=== PATIENT | female | born 1970 | race Caucasian/White ===

== ENCOUNTER 2017-06-24 17:55 | Emergency (ER) | payer OTHER, MEDICAID ==
[~2017-06-24] VITALS: Ht 157.5 cm; Wt 149.7 kg
[2017-06-24 17:55] VITALS: BP_SYST 98
[~2017-06-24 17:55] MED LIST: synthroid
[2017-06-24] MEDS: IPRATROPIUM/ALBUTEROL SULFATE 3 ML AMPUL.NEB INH ONE (18:31)
[2017-06-24] MEDS: KETOROLAC TROMETHAMINE 60 MG/2 ML VIAL IM ONE (18:33)
[2017-06-24] MEDS: PREDNISONE 20 MG TABLET PO ONE (18:34)
[2017-06-24 18:55] LABS: BASOPHILS # (AUTO) 0.4 K/uL (0.0-0.2); BASOPHILS % (AUTO) 4.1 % (0.0-2.0); EOSINOPHILS # (AUTO) 0.1 K/uL (0.0-0.4); EOSINOPHILS % (AUTO) 0.8 % (0.0-4.0); HEMATOCRIT 46.5 % (36-48); HEMOGLOBIN 15.4 g/dL (12.0-16.0); LYMPHOCYTES # (AUTO) 2.2 K/uL (1.0-5.5); MEAN CORPUSCULAR HEMOGLOBIN 29 pg (27-31); MEAN CORPUSCULAR HGB CONC 33 % (32-36); MEAN CORPUSCULAR VOLUME 89 fL (79.0-98.0); MONOCYTES # (AUTO) 0.5 K/uL (0.0-1.0); MONOCYTES % (AUTO) 5.1 % (1.7-9.3); NEUTROPHILS # (AUTO) 5.8 K/uL (1.8-7.7); PLATELET COUNT (AUTO) 205 K/uL (130-430); RED BLOOD CELL COUNT(AUTO) 5.23 MIL/uL (4.2-6.2); RED CELL DISTRIBUTION WIDTH 14.4 % (9.0-15.0)
[2017-06-24 19:00] LABS: CALCIUM 9.6 mg/dL (8.4-11.0); CREATININE 0.7 mg/dL (0.55-1.30); POTASSIUM 3.4 mmol/L (3.5-5.1)
[2017-06-24 19:05] LABS: ALBUMIN 3.3 g/dL (3.4-4.8); TOTAL BILIRUBIN 0.6 mg/dL (0.0-1.0)
[2017-06-24 19:45] VITALS: BP_SYST 102
== END 2017-06-24 19:45 | disposition home or self-care (01) ==
LOC: SED 17:55
DX: J20.9 Acute bronchitis, unspecified (principal); G40.909 Epilepsy, unspecified, not intractable, without status epilepticus; E03.9 Hypothyroidism, unspecified; F17.210 Nicotine dependence, cigarettes, uncomplicated
CPT/HCPCS: 36415; 71045; 80053; 83605; 84484; 85025; 87040; 94640; 96372; 99285; J1885; J7512; J7620

== ENCOUNTER 2020-10-17 11:35 | Inpatient (IN) | payer OTHER, SELFPAY ==
[2020-10-13 14:35] LABS: BASOPHILS # (AUTO) 0.1 K/uL (0.0-0.2); BASOPHILS % (AUTO) 0.8 % (0.0-2.0); EOSINOPHILS # (AUTO) 0.2 K/uL (0.0-0.4); EOSINOPHILS % (AUTO) 1.8 % (0.0-4.0); HEMATOCRIT 42.2 % (36-48); HEMOGLOBIN 13.9 g/dL (12.0-16.0); LYMPHOCYTES # (AUTO) 2.8 K/uL (1.0-5.5); LYMPHOCYTES % (AUTO) 24.4 % (20.5-51.5); MEAN CORPUSCULAR HEMOGLOBIN 30 pg (27-31); MEAN CORPUSCULAR HGB CONC 33 % (32-36); MEAN CORPUSCULAR VOLUME 91 fL (79.0-98.0); MONOCYTES # (AUTO) 0.6 K/uL (0.0-1.0); MONOCYTES % (AUTO) 5.1 % (1.7-9.3); NEUTROPHILS # (AUTO) 7.8 K/uL (1.8-7.7); NEUTROPHILS % (AUTO) 67.9 % (40.0-70.0); PLATELET COUNT (AUTO) 246 K/uL (130-430); RED BLOOD CELL COUNT(AUTO) 4.66 MIL/uL (4.2-6.2); RED CELL DISTRIBUTION WIDTH 16.6 % (9.0-15.0); WHITE BLOOD COUNT (AUTO) 11.5 K/uL (4.8-10.8)
[2020-10-13 14:38] LABS: CALCIUM 9.4 mg/dL (8.4-11.0); CREATININE 0.69 mg/dL (0.55-1.30); POTASSIUM 4.6 mmol/L (3.5-5.1)
[2020-10-13 14:40] LABS: BILIRUBIN,URINE NEGATIVE (NEGATIVE); BLOOD, URINE NEGATIVE (NEGATIVE); GLUCOSE,URINE NEGATIVE (NEGATIVE); KETONES,URINE NEGATIVE (NEGATIVE); LEUKOCYTE ESTERASE ,URINE NEGATIVE (NEGATIVE); NITRITE, URINE NEGATIVE (NEGATIVE); PROTEIN URINE NEGATIVE (NEGATIVE); UROBILINOGEN,URINE 0.2 (0.2-1.0)
[2020-10-13 14:42] LABS: CLARITY/URINE SLIGHTLY HAZY (CLEAR); COLOR,URINE AMBER (YELLOW)
[2020-10-13 14:49] LABS: INR 0.9 (0.8-1.2); PROTHROMBIN TIME 9.8 SECS (9.5-12.5)
[~2020-10-17] VITALS: Ht 152.4 cm; Wt 136.1 kg
[2020-10-17] MEDS ORDERED: fentaNYL CITRATE/PF 100 MCG/2 ML AMP IVP ONE (13:00)
[2020-10-17] MEDS ORDERED: PROPOFOL 200MG/ 20ML VIAL (DIPRIVAN) IV ONE (13:00)
[2020-10-17] MEDS ORDERED: LR 1,000 ML IV.SOLN IV ONE (13:00)
[2020-10-17] MEDS ORDERED: ROCURONIUM BROMIDE 10 MG/ML (ZEMURON) IV ONE (13:00)
[2020-10-17] MEDS ORDERED: SEVOFLURANE 15 MIN GAS INH ONE (13:00)
[2020-10-17] MEDS ORDERED: methylPREDNISolone ACETATE 80 MG/ML IM ONE (13:00)
[2020-10-17] MEDS ORDERED: SUGAMMADEX SODIUM 200 MG/2 ML VIAL IV ONE (13:00)
[2020-10-17] MEDS ORDERED: SUCCINYLCHOLINE CHLORIDE 20 MG/ML(QUELICIN) IVP ONE (13:00)
[2020-10-17] MEDS ORDERED: methylPREDNISolone SOD SUCC/PF 62.5 MG/ML VIAL IVP ONE (13:00)
[2020-10-17] MEDS ORDERED: LEVO175T2 PO (13:05)
[2020-10-17] MEDS ORDERED: NAPR220C15 PO (13:06)
[2020-10-17] MEDS ORDERED: ALBUTEROL SULFATE 0.083% 2.5 MG/3 ML VIAL.NEB INH ONE (14:03)
[2020-10-17] MEDS ORDERED: LR 1,000 ML IV ONE (14:30)
[2020-10-17] MEDS ORDERED: ONDANSETRON HCL 4 MG/2 ML VIAL IVP PRN ×2 (14:30→15:30)
[2020-10-17] MEDS ORDERED: fentaNYL CITRATE/PF 100 MCG/2 ML AMP IVP PRN (15:00)
[2020-10-17] MEDS: fentaNYL CITRATE/PF 100 MCG/2 ML AMP ONE ×2 (15:15→15:20)
[2020-10-17] MEDS ORDERED: ACETAMINOPHEN 325 MG TABLET PO PRN (15:15)
[2020-10-17] MEDS ORDERED: TEMAZEPAM 15 MG CAPSULE PO PRN (15:30)
[2020-10-17 15:57] VITALS: BP_SYST 105
[2020-10-17 16:00] VITALS: BP_SYST 115
[2020-10-17 16:22] VITALS: BP_SYST 152
[2020-10-17] MEDS ORDERED: HYDROcodone/ACETAMIN 10-325 MG TAB PO PRN (17:00)
[2020-10-17] MEDS: MORPHINE 4 MG INJ. 4 MG/ML VIAL IVP PRN ×3 (17:06→23:34)
[2020-10-17] MEDS: HYDROcodone/ACETAMIN 5-325 MG TAB (NORCO/ VICODIN) PO PRN ×2 (18:08→22:30)
[2020-10-17] MEDS: DOCUSATE SODIUM 250 MG CAPSULE PO SCH (20:09)
[2020-10-17 20:11] VITALS: BP_SYST 138
[2020-10-18 00:02] VITALS: BP_SYST 155
[2020-10-18] MEDS: HYDROcodone/ACETAMIN 5-325 MG TAB (NORCO/ VICODIN) PO PRN (05:50)
[2020-10-18] MEDS: LEVOTHYROXINE SODIUM 0.1 MG TABLET PO SCH (05:57)
[2020-10-18] MEDS: LEVOTHYROXINE SODIUM 0.075 MG TABLET PO SCH (05:57)
[2020-10-18 06:46] LABS: BASOPHILS % (AUTO) 0.2 % (0.0-2.0); HEMOGLOBIN 12.9 g/dL (12.0-16.0); LYMPHOCYTES # (AUTO) 1.2 K/uL (1.0-5.5); LYMPHOCYTES % (AUTO) 10.8 % (20.5-51.5); MEAN CORPUSCULAR HEMOGLOBIN 30 pg (27-31); MEAN CORPUSCULAR HGB CONC 32 % (32-36); MEAN CORPUSCULAR VOLUME 91 fL (79.0-98.0); MONOCYTES # (AUTO) 0.2 K/uL (0.0-1.0); MONOCYTES % (AUTO) 1.9 % (1.7-9.3); NEUTROPHILS % (AUTO) 87.1 % (40.0-70.0); PLATELET COUNT (AUTO) 234 K/uL (130-430); RED BLOOD CELL COUNT(AUTO) 4.37 MIL/uL (4.2-6.2); RED CELL DISTRIBUTION WIDTH 16.7 % (9.0-15.0); WHITE BLOOD COUNT (AUTO) 11.5 K/uL (4.8-10.8)
[2020-10-18] MEDS: MORPHINE 4 MG INJ. 4 MG/ML VIAL IVP PRN ×3 (06:49→20:09)
[2020-10-18 06:54] LABS: ALBUMIN 3.3 g/dL (3.4-4.8); CALCIUM 9.2 mg/dL (8.4-11.0); CREATININE 0.67 mg/dL (0.55-1.30); POTASSIUM 4.6 mmol/L (3.5-5.1); TOTAL BILIRUBIN 0.6 mg/dL (0.0-1.0)
[2020-10-18 07:56] VITALS: BP_SYST 127
[2020-10-18] MEDS: DOCUSATE SODIUM 250 MG CAPSULE PO SCH ×2 (08:16→20:07)
[2020-10-18] MEDS ORDERED: NON-FORMULARY MEDICATION (Levothyroxine Sodium (Synthroid) 175 MCG) PO SCH (09:00)
[2020-10-18] MEDS ORDERED: HYDR-3927 PO (11:29)
[2020-10-18 12:32] VITALS: BP_SYST 135
[2020-10-18] MEDS ORDERED: IPRATROPIUM/ALBUTEROL SULFATE 3 ML AMPUL.NEB (DUONEB) INH PRN ×2 (16:00→19:00)
[2020-10-18] MEDS ORDERED: IPRATROPIUM/ALBUTEROL SULFATE 3 ML AMPUL.NEB (DUONEB) INH ONE (16:00)
[2020-10-18 16:16] VITALS: BP_SYST 146
[2020-10-18 17:17] LABS: BASOPHILS # (AUTO) 0.1 K/uL (0.0-0.2); BASOPHILS % (AUTO) 0.4 % (0.0-2.0); HEMOGLOBIN 12.6 g/dL (12.0-16.0); LYMPHOCYTES # (AUTO) 1.9 K/uL (1.0-5.5); LYMPHOCYTES % (AUTO) 13.5 % (20.5-51.5); MEAN CORPUSCULAR HEMOGLOBIN 29 pg (27-31); MEAN CORPUSCULAR HGB CONC 32 % (32-36); MEAN CORPUSCULAR VOLUME 91 fL (79.0-98.0); MONOCYTES # (AUTO) 0.7 K/uL (0.0-1.0); MONOCYTES % (AUTO) 4.6 % (1.7-9.3); NEUTROPHILS # (AUTO) 11.7 K/uL (1.8-7.7); NEUTROPHILS % (AUTO) 81.5 % (40.0-70.0); PLATELET COUNT (AUTO) 243 K/uL (130-430); RED BLOOD CELL COUNT(AUTO) 4.29 MIL/uL (4.2-6.2); RED CELL DISTRIBUTION WIDTH 16.7 % (9.0-15.0); WHITE BLOOD COUNT (AUTO) 14.3 K/uL (4.8-10.8)
[2020-10-18 17:32] LABS: ANION GAP 4 (5-15); CALCIUM 9.3 mg/dL (8.4-11.0); CHLORIDE 102 mmol/L (98-107); CREATININE 0.71 mg/dL (0.55-1.30); GLUCOSE 118 mg/dL (70-99); POTASSIUM 4.4 mmol/L (3.5-5.1); SODIUM SERUM 138 mmol/L (136-145); UREA NITROGEN, BLOOD 16 mg/dL (8-21)
[2020-10-18 17:40] LABS: ALANINE AMINOTRANSFERASE 24 U/L (12-78); ALBUMIN 3.2 g/dL (3.4-4.8); ASPARTATE AMINOTRANSFERASE 16 U/L (10-37); TOTAL BILIRUBIN 0.4 mg/dL (0.0-1.0)
[2020-10-18 17:49] LABS: GFR AFRICAN AMERICAN 112 mL/min (>90)
[2020-10-18 20:00] VITALS: BP_SYST 128
[2020-10-18] MEDS: ENOXAPARIN SODIUM 40 MG/0.4 ML SYRINGE SUBCUT SCH ×3 (20:10→21:00)
[2020-10-18] MEDS: IPRATROPIUM/ALBUTEROL SULFATE 3 ML AMPUL.NEB (DUONEB) INH SCH (20:50)
[2020-10-19 03:00] VITALS: BP_SYST 140
[2020-10-19] MEDS: MORPHINE 4 MG INJ. 4 MG/ML VIAL IVP PRN ×4 (05:09→21:33)
[2020-10-19] MEDS: LEVOTHYROXINE SODIUM 0.1 MG TABLET PO SCH (06:15)
[2020-10-19] MEDS: LEVOTHYROXINE SODIUM 0.075 MG TABLET PO SCH (06:18)
[2020-10-19] MEDS: IPRATROPIUM/ALBUTEROL SULFATE 3 ML AMPUL.NEB (DUONEB) INH SCH ×2 (07:30→13:34)
[2020-10-19 08:00] VITALS: BP_SYST 154
[2020-10-19] MEDS: DOCUSATE SODIUM 250 MG CAPSULE PO SCH ×2 (08:51→21:25)
[2020-10-19] MEDS ORDERED: IOHEXOL 350 mgI/mL, 150 ML INFUS..BTL IV ONE (10:05)
[2020-10-19] MEDS ORDERED: PIPERACILLIN/TAZO 3.375/DEX-IS 50 ML IV SCH (12:00)
[2020-10-19 12:35] VITALS: BP_SYST 153
[2020-10-19] MEDS: AZITHROMYCIN 500 MG in NS 250 ML IV SCH (12:43)
[2020-10-19 16:34] VITALS: BP_SYST 145
[2020-10-19 19:50] VITALS: BP_SYST 132
[2020-10-19] MEDS: ENOXAPARIN SODIUM 40 MG/0.4 ML SYRINGE SUBCUT SCH (21:30)
[2020-10-19] MEDS: HYDROcodone/ACETAMIN 5-325 MG TAB (NORCO/ VICODIN) PO PRN (22:22)
[2020-10-19] MEDS ORDERED: VANCOMYCIN HCL 1000 MG/VIAL IV ONE (23:20)
[2020-10-19] MEDS ORDERED: VANCOMYCIN HCL 500 MG/VIAL IV ONE (23:20)
[2020-10-20] MEDS: VANCOMYCIN HCL 1,500 MG in NS 250 ML IV SCH ×2 (00:11→09:46)
[2020-10-20] MEDS: PIPERACILLIN/TAZO 3.375/DEX-IS 50 ML IV SCH ×4 (00:12→17:59)
[2020-10-20] MEDS: MORPHINE 4 MG INJ. 4 MG/ML VIAL IVP PRN ×5 (00:14→21:09)
[2020-10-20] MEDS: LEVOTHYROXINE SODIUM 0.1 MG TABLET PO SCH (06:34)
[2020-10-20] MEDS: LEVOTHYROXINE SODIUM 0.075 MG TABLET PO SCH (06:34)
[2020-10-20 08:00] VITALS: BP_SYST 150
[2020-10-20] MEDS: IPRATROPIUM/ALBUTEROL SULFATE 3 ML AMPUL.NEB (DUONEB) INH SCH ×3 (08:05→19:00)
[2020-10-20] MEDS: DOCUSATE SODIUM 250 MG CAPSULE PO SCH ×2 (08:13→20:46)
[2020-10-20 08:32] LABS: ALBUMIN 2.9 g/dL (3.4-4.8); CALCIUM 8.4 mg/dL (8.4-11.0); CREATININE 0.7 mg/dL (0.55-1.30); POTASSIUM 4.4 mmol/L (3.5-5.1); TOTAL BILIRUBIN 0.4 mg/dL (0.0-1.0)
[2020-10-20] MEDS ORDERED: DECADRON 4 MG TABLET PO SCH (10:00)
[2020-10-20 12:53] VITALS: BP_SYST 142
[2020-10-20] MEDS: AZITHROMYCIN 500 MG in NS 250 ML IV SCH (13:01)
[2020-10-20 16:00] VITALS: BP_SYST 116
[2020-10-20 20:00] VITALS: BP_SYST 138
[2020-10-20] MEDS: ENOXAPARIN SODIUM 40 MG/0.4 ML SYRINGE SUBCUT SCH (20:47)
[2020-10-21] VITALS: BP_SYST 125
[2020-10-21] MEDS: IPRATROPIUM/ALBUTEROL SULFATE 3 ML AMPUL.NEB (DUONEB) INH SCH ×4 (00:35→20:16)
[2020-10-21] MEDS: PIPERACILLIN/TAZO 3.375/DEX-IS 50 ML IV SCH ×4 (01:25→16:47)
[2020-10-21] MEDS: MORPHINE 4 MG INJ. 4 MG/ML VIAL IVP PRN ×6 (01:26→23:05)
[2020-10-21] MEDS: LEVOTHYROXINE SODIUM 0.075 MG TABLET PO SCH (06:34)
[2020-10-21] MEDS: LEVOTHYROXINE SODIUM 0.1 MG TABLET PO SCH (06:34)
[2020-10-21 07:21] LABS: ALBUMIN 2.8 g/dL (3.4-4.8); CALCIUM 8.7 mg/dL (8.4-11.0); CREATININE 0.67 mg/dL (0.55-1.30); POTASSIUM 3.8 mmol/L (3.5-5.1); TOTAL BILIRUBIN 0.5 mg/dL (0.0-1.0)
[2020-10-21 07:27] LABS: BASOPHILS % (AUTO) 0.4 % (0.0-2.0); EOSINOPHILS # (AUTO) 0.1 K/uL (0.0-0.4); EOSINOPHILS % (AUTO) 1.9 % (0.0-4.0); HEMOGLOBIN 11.9 g/dL (12.0-16.0); LYMPHOCYTES # (AUTO) 1.5 K/uL (1.0-5.5); LYMPHOCYTES % (AUTO) 20.2 % (20.5-51.5); MEAN CORPUSCULAR HEMOGLOBIN 30 pg (27-31); MEAN CORPUSCULAR HGB CONC 32 % (32-36); MEAN CORPUSCULAR VOLUME 92 fL (79.0-98.0); MONOCYTES # (AUTO) 0.6 K/uL (0.0-1.0); MONOCYTES % (AUTO) 8.6 % (1.7-9.3); NEUTROPHILS # (AUTO) 5.2 K/uL (1.8-7.7); NEUTROPHILS % (AUTO) 68.9 % (40.0-70.0); PLATELET COUNT (AUTO) 183 K/uL (130-430); RED BLOOD CELL COUNT(AUTO) 4.03 MIL/uL (4.2-6.2); RED CELL DISTRIBUTION WIDTH 16.2 % (9.0-15.0); WHITE BLOOD COUNT (AUTO) 7.5 K/uL (4.8-10.8)
[2020-10-21] MEDS: DECADRON 4 MG TABLET PO SCH (08:04)
[2020-10-21] MEDS: DOCUSATE SODIUM 250 MG CAPSULE PO SCH ×2 (08:05→21:10)
[2020-10-21 08:35] VITALS: BP_SYST 128
[2020-10-21 10:49] VITALS: BP_SYST 128
[2020-10-21 12:09] VITALS: BP_SYST 152
[2020-10-21] MEDS: AZITHROMYCIN 500 MG in NS 250 ML IV SCH (12:39)
[2020-10-21] MEDS ORDERED: CYANOCOBALAMIN 1000 MCG/ML VIAL IM ONE (15:45)
[2020-10-21 16:08] VITALS: BP_SYST 153
[2020-10-21] MEDS ORDERED: FOLIC ACID 1 MG TABLET PO ONE (16:15)
[2020-10-21] MEDS ORDERED: MULTIVITS,CA,MINERALS/IRON/FA 1 TABLET PO ONE (16:15)
[2020-10-21] MEDS: HYDROcodone/ACETAMIN 5-325 MG TAB (NORCO/ VICODIN) PO PRN (19:00)
[2020-10-21 20:00] VITALS: BP_SYST 148
[2020-10-21] MEDS ORDERED: QUEtiapine FUMARATE 25 MG TABLET PO ONE (21:00)
[2020-10-21] MEDS: ENOXAPARIN SODIUM 40 MG/0.4 ML SYRINGE SUBCUT SCH (21:12)
[2020-10-22 00:23] VITALS: BP_SYST 145
[2020-10-22] MEDS: PIPERACILLIN/TAZO 3.375/DEX-IS 50 ML IV SCH ×4 (00:39→17:21)
[2020-10-22] MEDS: IPRATROPIUM/ALBUTEROL SULFATE 3 ML AMPUL.NEB (DUONEB) INH SCH ×2 (01:27→19:00)
[2020-10-22] MEDS: LEVOTHYROXINE SODIUM 0.075 MG TABLET PO SCH (06:53)
[2020-10-22] MEDS: LEVOTHYROXINE SODIUM 0.1 MG TABLET PO SCH (06:54)
[2020-10-22] MEDS: HYDROcodone/ACETAMIN 5-325 MG TAB (NORCO/ VICODIN) PO PRN ×2 (06:55→17:31)
[2020-10-22 07:53] LABS: BASOPHILS % (AUTO) 0.2 % (0.0-2.0); EOSINOPHILS % (AUTO) 0.2 % (0.0-4.0); HEMATOCRIT 36.9 % (36-48); HEMOGLOBIN 11.9 g/dL (12.0-16.0); LYMPHOCYTES # (AUTO) 1.6 K/uL (1.0-5.5); LYMPHOCYTES % (AUTO) 17.2 % (20.5-51.5); MEAN CORPUSCULAR HEMOGLOBIN 30 pg (27-31); MEAN CORPUSCULAR HGB CONC 32 % (32-36); MEAN CORPUSCULAR VOLUME 92 fL (79.0-98.0); MONOCYTES # (AUTO) 0.5 K/uL (0.0-1.0); MONOCYTES % (AUTO) 5.9 % (1.7-9.3); NEUTROPHILS # (AUTO) 7.1 K/uL (1.8-7.7); NEUTROPHILS % (AUTO) 76.5 % (40.0-70.0); PLATELET COUNT (AUTO) 197 K/uL (130-430); RED BLOOD CELL COUNT(AUTO) 4.02 MIL/uL (4.2-6.2); RED CELL DISTRIBUTION WIDTH 16.4 % (9.0-15.0); WHITE BLOOD COUNT (AUTO) 9.2 K/uL (4.8-10.8)
[2020-10-22 08:00] VITALS: BP_SYST 149
[2020-10-22] MEDS: DOCUSATE SODIUM 250 MG CAPSULE PO SCH ×3 (08:00→22:36)
[2020-10-22] MEDS: FOLIC ACID 1 MG TABLET PO SCH (08:00)
[2020-10-22] MEDS: DECADRON 4 MG TABLET PO SCH (08:00)
[2020-10-22] MEDS: MULTIVITS,CA,MINERALS/IRON/FA 1 TABLET PO SCH (08:00)
[2020-10-22 10:11] LABS: CALCIUM 8.8 mg/dL (8.4-11.0); CREATININE 0.71 mg/dL (0.55-1.30); POTASSIUM 3.8 mmol/L (3.5-5.1)
[2020-10-22 10:33] LABS: C-REACTIVE PROTEIN QUANT 3.1 mg/dL (0-0.5)
[2020-10-22] MEDS: MORPHINE 4 MG INJ. 4 MG/ML VIAL IVP PRN ×3 (11:36→22:26)
[2020-10-22 12:09] VITALS: BP_SYST 140
[2020-10-22] MEDS: AZITHROMYCIN 500 MG in NS 250 ML IV SCH (12:46)
[2020-10-22 16:13] VITALS: BP_SYST 148
[2020-10-22 19:00] VITALS: BP_SYST 131
[2020-10-22 20:00] VITALS: BP_SYST 131
[2020-10-22] MEDS: ENOXAPARIN SODIUM 40 MG/0.4 ML SYRINGE SUBCUT SCH (22:17)
[2020-10-23 00:29] VITALS: BP_SYST 141
[2020-10-23] MEDS: HYDROcodone/ACETAMIN 5-325 MG TAB (NORCO/ VICODIN) PO PRN ×2 (00:39→09:29)
[2020-10-23] MEDS: IPRATROPIUM/ALBUTEROL SULFATE 3 ML AMPUL.NEB (DUONEB) INH SCH ×2 (01:00→07:00)
[2020-10-23] MEDS: PIPERACILLIN/TAZO 3.375/DEX-IS 50 ML IV SCH ×3 (03:20→05:19)
[2020-10-23] MEDS: MORPHINE 4 MG INJ. 4 MG/ML VIAL IVP PRN (05:18)
[2020-10-23] MEDS: LEVOTHYROXINE SODIUM 0.075 MG TABLET PO SCH (05:19)
[2020-10-23] MEDS: LEVOTHYROXINE SODIUM 0.1 MG TABLET PO SCH (05:19)
[2020-10-23 08:00] VITALS: BP_SYST 133
[2020-10-23] MEDS: DOCUSATE SODIUM 250 MG CAPSULE PO SCH (09:00)
[2020-10-23] MEDS: FOLIC ACID 1 MG TABLET PO SCH (09:29)
[2020-10-23] MEDS: MULTIVITS,CA,MINERALS/IRON/FA 1 TABLET PO SCH (09:29)
[2020-10-23] MEDS: DECADRON 4 MG TABLET PO SCH (09:36)
[2020-10-23] MEDS ORDERED: IPRA3AMP9 INH (13:13)
[2020-10-23] MEDS ORDERED: DOXY100C PO (13:14)
== END 2020-10-23 11:30 | disposition left against medical advice (07) | DRG 488 ==
LOC: SDS 11:35 → SMU 11:45 → SDS 10-18 15:18 → SMU 10-18 15:19 → STU 10-19 19:20
PROVIDERS: ADMIT Orthopaedic Surgery; ATTEND Orthopaedic Surgery
PROC: 3E0U33Z Introduction of Anti-inflammatory into Joints, Percutaneous Approach (ICD-10-PCS; 2020-10-17)
PROC: 3E0U3BZ Introduction of Anesthetic Agent into Joints, Percutaneous Approach (ICD-10-PCS; 2020-10-17)
PROC: 0SBC4ZZ Excision of Right Knee Joint, Percutaneous Endoscopic Approach (ICD-10-PCS; principal; 2020-10-17 13:00)
DX: S83.231A Complex tear of medial meniscus, current injury, right knee, initial encounter (principal); J18.9 Pneumonia, unspecified organism; J96.21 Acute and chronic respiratory failure with hypoxia; J96.22 Acute and chronic respiratory failure with hypercapnia; E44.1 Mild protein-calorie malnutrition; Z68.43 Body mass index [BMI] 50.0-59.9, adult; M17.0 Bilateral primary osteoarthritis of knee; Z20.822 Contact with and (suspected) exposure to COVID-19; E03.9 Hypothyroidism, unspecified; E66.01 Morbid (severe) obesity due to excess calories; F17.210 Nicotine dependence, cigarettes, uncomplicated; X58.XXXA Exposure to other specified factors, initial encounter; Z53.21 Procedure and treatment not carried out due to patient leaving prior to being seen by health care provider; G89.29 Other chronic pain; Z98.51 Tubal ligation status; Z79.899 Other long term (current) drug therapy; Y93.89 Activity, other specified; Y92.89 Other specified places as the place of occurrence of the external cause; Y99.8 Other external cause status
CPT/HCPCS: 36415; 36600; 71045; 71046-TC; 71275; 73590-TC; 76376; 80048; 80053; 81003; 82607; 82803-TC; 83880; 84484; 85025; 85610-TC; 85651-TC; 85730-TC; 86140; 86738; 87040-TC; 87070-TC; 87081; 87086; 87205-TC; 93970; 94640; 94760; 97112-GP; 97116-GP; G0378; J0330; J0456; J1040; J1650; J2270; J2543; J2704; J2930; J3010; J3370; J3420; J3490; J7050; J7120; J7613; J8540; Q9967; U0003

== ENCOUNTER 2022-05-29 08:16 | Emergency (ER) | payer OTHER ==
[~2022-05-29] VITALS: Ht 152.4 cm; Wt 136.1 kg
[~2022-05-29 08:16] MED LIST changes: +DOXY100C PO; +IPRA3AMP9 INH; +LEVO175T2 PO; +NAPR220C15 PO; -synthroid
[2022-05-29 08:20] VITALS: BP_SYST 114
--- NOTE | 2022-05-29 08:20 | NUR ---
Placed in room 07 . Placed on media monitor, blood pressure machine and pulse oximeter. To gown for exam. Side rails up. Report given to OZZY ZENDEJAS.
--- NOTE | 2022-05-29 08:25 | NUR ---
PT BIB DAUGHTER FROM HOME C/O BILAT LOWER LEG SWELLING AND PAIN, WENT TO SEE PCP DR. NUNEZ LAST NIGHT WHO REQUESTED ULTRASOUND FOR BLE. PT ARRIVES IN WC FROM HOME, AOX4, VSS
--- NOTE | 2022-05-29 08:30 | NUR ---
ER DR. LIMA AT THE BEDSIDE EXAMINING PT
--- NOTE | 2022-05-29 08:35 | NUR ---
Pt brought in by daughter from medical office visit. Pt complains of swelling to BLE. Pt complains of moderate level of pain. BLE are swollen with 3+ dry and flaky skin with red bumps and firmness. Pt denie smoking past 2 months. Pt has a history of COPD. Room air 84%. Nasal canula and repositioning for comfort. Pt is 98% at 2 liters oxygen. Pt is aaox3, denies chest pain, denies cardiac history.
--- NOTE | 2022-05-29 08:45 | NUR ---
Pt gowned and undressed in preparation for EKG and ultrasound of BLE.
--- NOTE | 2022-05-29 08:50 | NUR ---
EKG performed at BS by RP. Physician given copy of EKG for review.
--- NOTE | 2022-05-29 08:51 | NUR ---
[employer] Tender bedside collecting lab specimen.
[2022-05-29 09:09] LABS: BASOPHILS % (AUTO) 0.5 % (0.0-2.0); EOSINOPHILS # (AUTO) 0.1 K/uL (0.0-0.4); EOSINOPHILS % (AUTO) 1.1 % (0.0-4.0); HEMATOCRIT 33.4 % (36-48); HEMOGLOBIN 10.7 g/dL (12.0-16.0); LYMPHOCYTES # (AUTO) 1.8 K/uL (1.0-5.5); LYMPHOCYTES % (AUTO) 21.1 % (20.5-51.5); MEAN CORPUSCULAR HEMOGLOBIN 27 pg (27-31); MEAN CORPUSCULAR HGB CONC 32 % (32-36); MEAN CORPUSCULAR VOLUME 85 fL (79.0-98.0); MONOCYTES # (AUTO) 0.6 K/uL (0.0-1.0); MONOCYTES % (AUTO) 6.9 % (1.7-9.3); NEUTROPHILS % (AUTO) 70.4 % (40.0-70.0); PLATELET COUNT (AUTO) 199 K/uL (130-430); RED BLOOD CELL COUNT(AUTO) 3.92 MIL/uL (4.2-6.2); WHITE BLOOD COUNT (AUTO) 8.5 K/uL (4.8-10.8)
[2022-05-29 09:13] LABS: CALCIUM 9.7 mg/dL (8.4-11.0); CREATININE 0.8 mg/dL (0.55-1.30)
--- NOTE | 2022-05-29 09:17 | NUR ---
CRITICAL LAB VALUE: POTASSIUM 2.9 REPORTED BY LAB:[facility]
[2022-05-29 09:18] LABS: ALBUMIN 3.2 g/dL (3.4-4.8); C-REACTIVE PROTEIN QUANT 6.8 mg/dL (0-0.5); TOTAL BILIRUBIN 0.6 mg/dL (0.0-1.0)
[2022-05-29 09:19] LABS: PROTHROMBIN TIME 10.1 SECS (9.5-12.5)
--- NOTE | 2022-05-29 09:19 | NUR ---
GAVE REPORT TO YOBANY RN
[2022-05-29] MEDS ORDERED: POTASSIUM CHLORIDE 20 MEQ/PKT PACKET PO ONE (10:30)
--- NOTE | 2022-05-29 10:35 | NUR ---
Patient given written and verbal discharge instructions and verbalizes understanding. ER MD discussed with patient the results and treatment provided. Patient in stable condition. ID arm band removed. Rx of given. Patient educated on pain management and to follow up with PMD. Opportunity for questions provided and answered. Medication side effect fact sheet provided.
[2022-05-29 10:45] VITALS: BP_SYST 114
== END 2022-05-29 10:35 | disposition home or self-care (01) ==
LOC: SED 08:16
DX: A00.0 Cholera due to Vibrio cholerae 01, biovar cholerae (principal); R22.43 Localized swelling, mass and lump, lower limb, bilateral; J44.9 Chronic obstructive pulmonary disease, unspecified; Z79.899 Other long term (current) drug therapy
CPT/HCPCS: 36415; 80053; 83880; 85025; 85610-TC; 85730-TC; 86140; 93005; 93971; 99284